=== PATIENT | female | born 1970 | race Caucasian/White ===

== ENCOUNTER 2017-01-13 07:17 | Observation (INO) | payer MEDICAID ==
[~2017-01-13] VITALS: Ht 152.4 cm; Wt 72.9 kg
[~2017-01-13 07:17] MED LIST: BENZ2AMP4 PO; BUSP15TA PO; HALO5AMP3 PO; HALO5TAB5 PO; LORA-446 PO; METH5TAB4 PO; MIRT15TA PO; MIRT15TA3 PO; PRAZ1CAP2 PO; PRAZ2CAP2 PO; TRAM50TA2 PO; ZOLP-413 PO
[2017-01-13 08:09] LABS: HEMOGLOBIN 14.5 g/dL (11.7-16.4)
[2017-01-13 08:14] LABS: BLOOD UREA NITROGEN 14 mg/dL (7-18)
[2017-01-13 08:22] LABS: ACETAMINOPHEN < 2 mcg/mL (10-30)
[2017-01-13] MEDS ORDERED: RISPERIDONE 1 MG TABLET PO SCH (09:30)
[2017-01-13 09:36] LABS: DAU SCREEN DISCLAIMER
[2017-01-13] MEDS ORDERED: ONDANSETRON ODT 4 MG PO PRN (14:30)
[2017-01-13] MEDS ORDERED: POLYETHYLENE GLYCOL 17 GM PACKET PO PRN (14:30)
[2017-01-13] MEDS ORDERED: DOCUSATE 100 MG CAPSULE PO PRN (14:30)
[2017-01-13] MEDS ORDERED: BISACODYL 10 MG SUPP PR PRN (14:30)
[2017-01-13] MEDS ORDERED: ACETAMINOPHEN 325 MG TABLET PO PRN (14:30)
[2017-01-13] MEDS ORDERED: LORA-445 PO (15:40)
[2017-01-13 19:31] VITALS: BP 94/60
[2017-01-13 20:43] VITALS: BP 101/64
[2017-01-13] MEDS: RISPERIDONE 1 MG TABLET PO SCH (21:19)
[2017-01-14 07:33] VITALS: BP 100/64
[2017-01-14] MEDS ORDERED: PERMETHRIN CRM 5%, 60GM TP SCH (08:30)
[2017-01-14] MEDS: RISPERIDONE 1 MG TABLET PO SCH (09:01)
[2017-01-14] MEDS ORDERED: LORA2TAB99 PO (22:38)
[2017-01-14] MEDS ORDERED: PERM60CR17 TP (22:38)
[2017-01-14] MEDS ORDERED: RISP1TAB45 PO (22:38)
== END 2017-01-14 19:10 ==
LOC: ED 09:18 → EDIP 09:19 → INTOOBSV 09:19 → ED 09:26 → 3E 14:41
PROVIDERS: ADMIT Family Medicine; ATTEND Family Medicine
DX: R45.851 Suicidal ideations (principal); F31.9 Bipolar disorder, unspecified; F15.10 Other stimulant abuse, uncomplicated; B86 Scabies; F20.9 Schizophrenia, unspecified; Z81.8 Family history of other mental and behavioral disorders
CPT/HCPCS: 36415; 80048; 80307; 80329; 81001; 82040; 84439; 84443; 84703; 85025; 87086; 99285; G0378; G0480

== ENCOUNTER 2017-05-19 09:53 | Emergency (ER) | payer MEDICAID ==
[~2017-05-19] VITALS: Ht 152.4 cm; Wt 69.8 kg
[~2017-05-19 09:53] MED LIST changes: +LORA-445 PO; +LORA2TAB99 PO; +PERM60CR17 TP; +RISP1TAB45 PO
[2017-05-19 09:55] VITALS: BP 115/73
[2017-05-19] MEDS ORDERED: BACITRACIN ZINC OINT 500U/GM, 0.9 GM ONE (10:32)
== END 2017-05-19 10:45 | disposition home or self-care (01) ==
LOC: ED 10:06
DX: L03.115 Cellulitis of right lower limb (principal); F15.10 Other stimulant abuse, uncomplicated; I10 Essential (primary) hypertension; Z90.49 Acquired absence of other specified parts of digestive tract; Z98.51 Tubal ligation status
CPT/HCPCS: 99284

== ENCOUNTER 2017-06-13 13:05 | Observation (INO) | payer MEDICAID ==
[~2017-06-13] VITALS: Ht 152.4 cm; Wt 68.4 kg
[2017-06-13] MEDS ORDERED: GABA-827 PO (13:29)
[2017-06-13] MEDS ORDERED: TOPI25TA32 PO (13:29)
[2017-06-13] MEDS ORDERED: IBUP-1221 PO (13:29)
[2017-06-13] MEDS ORDERED: MIRT15TA PO (13:29)
[2017-06-13 13:55] LABS: DAU SCREEN DISCLAIMER
[2017-06-13 14:08] LABS: HEMATOCRIT 36.8 % (34.6-47.8); HEMOGLOBIN 12.5 g/dL (11.7-16.4); WHITE BLOOD COUNT 7.6 x10^3/uL (3.4-10)
[2017-06-13 14:15] LABS: BLOOD UREA NITROGEN 18 mg/dL (7-18)
[2017-06-13 14:17] LABS: ACETAMINOPHEN < 2 mcg/mL (10-30)
[2017-06-13] MEDS ORDERED: LORazepam 2 MG/ML, 1ML IM PRN (19:30)
[2017-06-13] MEDS ORDERED: HALOPERIDOL 5 MG/ML IM PRN (19:30)
[2017-06-13] MEDS ORDERED: BENZTROPINE 1 MG TABLET PO PRN (19:30)
[2017-06-13 20:57] VITALS: BP 118/75
[2017-06-13] MEDS: TEMAZEPAM 15 MG CAPSULE PO PRN (21:30)
[2017-06-14] MEDS: TOPIRAMATE MC SCH ×3 (00:06→14:25)
[2017-06-14 08:15] VITALS: BP 110/63
[2017-06-14] MEDS ORDERED: GABAPENTIN 400 MG CAPSULE PO SCH (09:00)
[2017-06-14] MEDS ORDERED: MIRTAZAPINE 15 MG TABLET PO SCH (09:00)
[2017-06-14] MEDS ORDERED: TOPI100T24 PO (10:25)
[2017-06-14] MEDS ORDERED: GABA-826 PO (10:28)
[2017-06-14] MEDS ORDERED: MIRT15TA4 PO (10:29)
[2017-06-14] MEDS ORDERED: BUSP10TA PO (10:30)
[2017-06-14] MEDS ORDERED: DOXE25CA PO (10:38)
[2017-06-14] MEDS: BUSPIRONE 10 MG TABLET PO SCH ×2 (16:47→20:32)
[2017-06-14] MEDS: GABAPENTIN 300 MG CAPSULE PO SCH ×2 (16:47→20:32)
[2017-06-14] MEDS: TOPIRAMATE 100 MG TABLET PO SCH (20:31)
[2017-06-14] MEDS: MIRTAZAPINE 15 MG TABLET PO SCH (20:32)
[2017-06-14] MEDS: OLANZAPINE 10 MG TABLET PO SCH (20:32)
[2017-06-14 20:46] VITALS: BP 111/68
[2017-06-14] MEDS ORDERED: TOPIRAMATE 25 MG TABLET PO SCH (21:00)
[2017-06-15 08:52] VITALS: BP_SYST 118; BP_SYST 125; BP_DIAS 68; BP_DIAS 82
[2017-06-15] MEDS: BUSPIRONE 10 MG TABLET PO SCH ×3 (08:54→20:14)
[2017-06-15] MEDS: TOPIRAMATE 100 MG TABLET PO SCH ×2 (08:54→20:13)
[2017-06-15] MEDS: GABAPENTIN 300 MG CAPSULE PO SCH ×3 (08:54→20:14)
[2017-06-15 19:12] VITALS: BP 96/57
[2017-06-15] MEDS: MIRTAZAPINE 15 MG TABLET PO SCH (20:14)
[2017-06-15] MEDS: OLANZAPINE 10 MG TABLET PO SCH (20:14)
[2017-06-16 08:00] VITALS: BP 113/61
[2017-06-16] MEDS: BUSPIRONE 10 MG TABLET PO SCH ×3 (08:37→20:29)
[2017-06-16] MEDS: GABAPENTIN 300 MG CAPSULE PO SCH ×3 (08:37→20:30)
[2017-06-16] MEDS: TOPIRAMATE 100 MG TABLET PO SCH ×2 (08:37→20:29)
[2017-06-16 19:49] VITALS: BP 134/90
[2017-06-16] MEDS: MIRTAZAPINE 15 MG TABLET PO SCH (20:29)
[2017-06-16] MEDS: OLANZAPINE 10 MG TABLET PO SCH (20:30)
[2017-06-17 07:27] VITALS: BP 113/60
[2017-06-17] MEDS: TOPIRAMATE 100 MG TABLET PO SCH ×2 (08:57→20:22)
[2017-06-17] MEDS: GABAPENTIN 300 MG CAPSULE PO SCH ×3 (08:57→20:22)
[2017-06-17] MEDS: BUSPIRONE 10 MG TABLET PO SCH ×3 (08:57→20:22)
[2017-06-17] MEDS: ACETAMINOPHEN 325 MG TABLET PO PRN (14:45)
[2017-06-17 20:00] VITALS: BP 101/63
[2017-06-17] MEDS: OLANZAPINE 10 MG TABLET PO SCH (20:22)
[2017-06-17] MEDS: MIRTAZAPINE 15 MG TABLET PO SCH (20:22)
[2017-06-18] MEDS: TEMAZEPAM 15 MG CAPSULE PO PRN (03:59)
[2017-06-18 08:00] VITALS: BP 125/72
[2017-06-18] MEDS: BUSPIRONE 10 MG TABLET PO SCH ×3 (08:35→22:05)
[2017-06-18] MEDS: TOPIRAMATE 100 MG TABLET PO SCH ×2 (08:36→22:05)
[2017-06-18] MEDS: GABAPENTIN 300 MG CAPSULE PO SCH ×3 (08:36→22:05)
[2017-06-18] MEDS ORDERED: LORazepam 1MG TABLET PO PRN (14:00)
[2017-06-18] MEDS ORDERED: LORazepam 1MG TABLET ONE (14:03)
[2017-06-18] MEDS: LORazepam 2 MG/ML, 1ML IM PRN (14:05)
[2017-06-18] MEDS: ACETAMINOPHEN 325 MG TABLET PO PRN (16:10)
[2017-06-18 19:36] VITALS: BP 106/68
[2017-06-18] MEDS: OLANZAPINE 10 MG TABLET PO SCH (22:05)
[2017-06-18] MEDS: MIRTAZAPINE 15 MG TABLET PO SCH (22:05)
[2017-06-19] MEDS: TEMAZEPAM 15 MG CAPSULE PO PRN (02:21)
[2017-06-19] MEDS: ACETAMINOPHEN 325 MG TABLET PO PRN ×3 (06:07→22:14)
[2017-06-19 08:00] VITALS: BP 120/65
[2017-06-19] MEDS: GABAPENTIN 300 MG CAPSULE PO SCH ×3 (08:33→21:09)
[2017-06-19] MEDS: TOPIRAMATE 100 MG TABLET PO SCH ×2 (08:33→21:10)
[2017-06-19] MEDS: BUSPIRONE 10 MG TABLET PO SCH ×3 (08:33→21:10)
[2017-06-19] MEDS: LORazepam 2 MG/ML, 1ML IM PRN ×2 (13:53→22:39)
[2017-06-19] MEDS: HEMORRHOIDAL OINT, 28 GM (PREP H) RC PRN (15:47)
[2017-06-19] MEDS ORDERED: PRAMOXINE/ZINC OXIDE 28GM EXT PRN (16:00)
[2017-06-19] MEDS: LORazepam 1MG TABLET PO PRN (16:10)
[2017-06-19 19:41] VITALS: BP 103/61
[2017-06-19] MEDS: OLANZAPINE 10 MG TABLET PO SCH (21:09)
[2017-06-19] MEDS: MIRTAZAPINE 15 MG TABLET PO SCH (21:09)
[2017-06-20] MEDS: ACETAMINOPHEN 325 MG TABLET PO PRN (04:23)
[2017-06-20] MEDS: LORazepam 2 MG/ML, 1ML IM PRN (04:24)
[2017-06-20 08:00] VITALS: BP 113/74
[2017-06-20] MEDS: TOPIRAMATE 100 MG TABLET PO SCH ×2 (08:15→21:10)
[2017-06-20] MEDS: BUSPIRONE 10 MG TABLET PO SCH ×3 (08:15→21:10)
[2017-06-20] MEDS: GABAPENTIN 300 MG CAPSULE PO SCH ×3 (08:15→21:10)
[2017-06-20] MEDS: LORazepam 1MG TABLET PO PRN (09:52)
[2017-06-20] MEDS: HEMORRHOIDAL OINT, 28 GM (PREP H) RC PRN (10:01)
[2017-06-20] MEDS ORDERED: ALBUTEROL SULFATE 2.5MG/0.5ML NPPB PRN (15:00)
[2017-06-20] MEDS ORDERED: IPRATROPIUM 0.5 MG/2.5 ML INHA NPPB PRN (15:00)
[2017-06-20] MEDS ORDERED: BENZTROPINE 1 MG TABLET PO PRN (15:00)
[2017-06-20] MEDS ORDERED: ACETAMINOPHEN 325 MG TABLET PO PRN (15:00)
[2017-06-20] MEDS ORDERED: TEMAZEPAM 15 MG CAPSULE PO PRN (15:00)
[2017-06-20] MEDS ORDERED: HALOPERIDOL 5 MG/ML IM PRN (15:00)
[2017-06-20] MEDS ORDERED: LORazepam 1MG TABLET PO PRN ×2 (15:00→18:00)
[2017-06-20] MEDS ORDERED: LORazepam 2 MG/ML, 1ML IM PRN ×2 (15:00→18:00)
[2017-06-20] MEDS ORDERED: ALBUTEROL SULFATE 2.5 MG/3 ML ONE (15:56)
[2017-06-20] MEDS ORDERED: ALBUTEROL/IPRATROPIUM 2.5MG/0.5MG, 3 ML NPPB PRN (16:00)
[2017-06-20 19:28] VITALS: BP 110/67
[2017-06-20] MEDS ORDERED: OLANZAPINE 10 MG TABLET PO SCH (21:00)
[2017-06-20] MEDS: MIRTAZAPINE 15 MG TABLET PO SCH (21:10)
[2017-06-21] MEDS: HEMORRHOIDAL OINT, 28 GM (PREP H) RC PRN ×2 (05:02→08:19)
[2017-06-21 07:06] VITALS: BP 118/68
[2017-06-21] MEDS: TOPIRAMATE 100 MG TABLET PO SCH (08:18)
[2017-06-21] MEDS: GABAPENTIN 300 MG CAPSULE PO SCH (08:19)
[2017-06-21] MEDS: BUSPIRONE 10 MG TABLET PO SCH (08:19)
== END 2017-06-21 15:51 ==
LOC: ED 13:24 → EDIP 18:15 → 3E 20:54
PROVIDERS: ADMIT Internal Medicine; ATTEND Internal Medicine
DX: R45.850 Homicidal ideations (principal); F23 Brief psychotic disorder; I10 Essential (primary) hypertension; F22 Delusional disorders; F15.90 Other stimulant use, unspecified, uncomplicated; F31.9 Bipolar disorder, unspecified; F20.9 Schizophrenia, unspecified; Z91.5 Personal history of self-harm
CPT/HCPCS: 36415; 80048; 80307; 80329; 82040; 82962; 84703; 85025; 93005; 94640; 96372; 99285; G0378; J2060; J7613; J7620; G0480